=== PATIENT | female | born 1965 | race Caucasian/White ===

== ENCOUNTER 2021-11-07 12:17 | Emergency (ER) | payer MEDICAID ==
[~2021-11-07] VITALS: Ht 154.9 cm; Wt 65.8 kg
--- NOTE | 2021-11-07 13:43 | NUR ---
MD Santiago is BS with pt for MSE.
[2021-11-07] MEDS ORDERED: hydrALAZINE HCL 20 MG/ML VIAL IVP ONE (13:45)
--- NOTE | 2021-11-07 13:45 | NUR ---
Ekg performed Bs . Pt tolerated well.
[2021-11-07 14:19] LABS: EOSINOPHILS # (AUTO) 0.2 K/uL (0.0-0.4); EOSINOPHILS % (AUTO) 5.1 % (0.0-4.0); HEMATOCRIT 39.9 % (36-48); HEMOGLOBIN 13.3 g/dL (12.0-16.0); LYMPHOCYTES # (AUTO) 1.5 K/uL (1.0-5.5); LYMPHOCYTES % (AUTO) 34.8 % (20.5-51.5); MEAN CORPUSCULAR HEMOGLOBIN 28 pg (27-31); MEAN CORPUSCULAR HGB CONC 33 % (32-36); MEAN CORPUSCULAR VOLUME 82 fL (79.0-98.0); MONOCYTES # (AUTO) 0.5 K/uL (0.0-1.0); MONOCYTES % (AUTO) 11.5 % (1.7-9.3); NEUTROPHILS % (AUTO) 47.6 % (40.0-70.0); PLATELET COUNT (AUTO) 209 K/uL (130-430); RED BLOOD CELL COUNT(AUTO) 4.85 MIL/uL (4.2-6.2); RED CELL DISTRIBUTION WIDTH 13.9 % (9.0-15.0); WHITE BLOOD COUNT (AUTO) 4.3 K/uL (4.8-10.8)
[2021-11-07 14:28] LABS: ANION GAP 6 (5-15); CALCIUM 8.8 mg/dL (8.4-11.0); CHLORIDE 103 mmol/L (98-107); GLUCOSE 103 mg/dL (70-99); POTASSIUM 3.9 mmol/L (3.5-5.1); SODIUM SERUM 139 mmol/L (136-145); UREA NITROGEN, BLOOD 15 mg/dL (8-21)
[2021-11-07 14:31] LABS: GFR AFRICAN AMERICAN 95 mL/min (>90)
[2021-11-07 14:32] LABS: INR 1.1 (0.8-1.2); PROTHROMBIN TIME 10.8 SECS (9.5-12.5)
[2021-11-07 14:36] LABS: ALANINE AMINOTRANSFERASE 15 U/L (12-78); ASPARTATE AMINOTRANSFERASE 18 U/L (10-37); TOTAL BILIRUBIN 0.6 mg/dL (0.0-1.0)
--- NOTE | 2021-11-07 15:00 | NUR ---
Pt recieved from [facility]. Pt BIB ACLS, Pt c/o headache R/T Hx of HTN. Pt has JVD vibrating to the left artery. Pt states BP was systolic 200 this 0900 at [facility]. Pharmacist called [phone]. 4th visit to ER in past 60 days. RX Losartan and Catapress.
--- NOTE | 2021-11-07 15:00 | NUR ---
Pt requested food denies N/V Pt aaox4. Ate 100% turkey sandwich and grape juice. VSS bp 161/80.
[2021-11-07 19:31] VITALS: BP_SYST 164
== END 2021-11-07 19:31 | disposition home or self-care (01) ==
LOC: SED 12:17
DX: I10 Essential (primary) hypertension (principal); R42 Dizziness and giddiness; Z79.899 Other long term (current) drug therapy
CPT/HCPCS: 36415; 70450; 71045; 76376; 80053; 82962; 84484; 85025; 85610; 85730; 93005; 96374; 99285; J0360